=== PATIENT | female | born 1970 | race Hispanic/Latino ===

== ENCOUNTER 2018-08-08 22:45 | Emergency (ER) | payer MEDICAID, OTHER ==
[2018-08-08] MEDS ORDERED: DIPHENHYDRAMINE HCL 25 MG CAPSULE ONE (23:36)
== END 2018-08-08 23:43 | disposition home or self-care (01) ==
LOC: EDH 22:45
DX: L23.4 Allergic contact dermatitis due to dyes (principal); Z90.710 Acquired absence of both cervix and uterus; Z88.8 Allergy status to other drugs, medicaments and biological substances
CPT/HCPCS: 99282; Q0163